=== PATIENT | male | born 1945 | race Caucasian/White ===

== ENCOUNTER 2020-12-05 01:10 | Inpatient (IN) | payer MEDICARE ==
[~2020-12-05] VITALS: Ht 177.8 cm; Wt 61.2 kg
[~2020-12-05 01:10] MED LIST: VITAMIN D21250 MCG PO
[2020-12-05] MEDS ORDERED: COZAAR 25MG TAB25 MG PO (03:48)
[2020-12-05] MEDS ORDERED: LIOTHYRONINE SO5 MCG PO (03:49)
--- NOTE | 2020-12-05 06:21 | NUR ---
UPON ADMISSION TO FLOOR, DR. STEVENS WAS NOTIFIED OF PT ARRIVAL FROM [place]. AFTER ASSESSING PT AND MD CAME TO ROOM TO ASSESS PT, I REQUESTED THAT PT BE MOVED TO A HIGHER LEVEL OF CARE. MD STATED THERE WAS NO NEED, THAT HE WOULD RECEIVE THE SAME CARE ON THIS FLOOR ICU. REQUEST DENIED. WCTM
[2020-12-05 06:26] LABS: RED BLOOD COUNT 3.89 M/UL (4.20-5.50); WHITE BLOOD COUNT 19.2 K/UL (4.5-11.0)
[2020-12-05 07:06] LABS: BUN/CREATININE RATIO 28 (0-10)
[2020-12-05 16:52] LABS: ADENOVIRUS F 40/41 Not Detected (Negative); ASTROVIRUS Not Detected (Negative); CAMPYLOBACTER Not Detected (Negative); CLOSTRIDIUM DIFFICILE TOX A/B Not Detected (Negative); CRYPTOSPORIDIUM Not Detected (Negative); E.COLI 0157 Not Detected (Negative); ENTAMOEBA HISTOLYTICA Not Detected (Negative); ENTEROAGGREGATIVE E.COLI (EAEC Not Detected (Negative); ENTEROPATHOGENIC E.COLI (EPEC) Not Detected (Negative); ENTEROTOXIGENIC E.COLI (ETEC) Not Detected (Negative); GIARDIA LAMBLIA Not Detected (Negative); NOROVIRUS GI/GII Not Detected (Negative); PLESIOMONAS SHIGELLOIDES Not Detected (Negative); ROTOVIRUS A Not Detected (Negative); SALMONELLA Not Detected (Negative); SAPOVIRUS Not Detected (Negative); SHIG/ENTEROINVAS.ECOLI (EIEC) Not Detected (Negative); SHIGA-LIK TOX.PRO.E.COLI (STEC Not Detected (Negative); VIBRIO Not Detected (Negative); VIBRIO CHOLERAE Not Detected (Negative); YERSINIA ENTEROCOLITICA Not Detected (Negative)
--- NOTE | 2020-12-05 18:07 | NUR ---
DR GARCIA NOTIFIED OF LAB RESULT LACTIC ACID OF 18, ALSO MADE HIM AWARE OF DAUGHTERS CONCERN FOR POSSIBLE FALSE POSITIVE COVID TEST, NEW ORDER REC'D
--- NOTE | 2020-12-05 18:25 | NUR ---
0800 JOSE NOTIFIED OF PT BP 75/30 PT ALERT AND ORIENTED X4 MD GAVE ORDERS FOR PT TO BE TTRANSFERED TO HIGHER LEVEL OF CARE RESOURCE RN CAME TO ADMINSITERED MEDICATIONS TO MAINTAIN PATIENT UNTIL BED WAS OPEN
[2020-12-06 02:54] LABS: WHITE BLOOD COUNT 23.4 K/UL (4.5-11.0)
[2020-12-06 03:00] LABS: HEMOGLOBIN 9.7 gm/dl (14.0-17.5); RED BLOOD COUNT 3.12 M/UL (4.20-5.50)
[2020-12-06 03:18] LABS: BUN/CREATININE RATIO 39 (0-10)
[2020-12-07 13:16] LABS: BUN/CREATININE RATIO 55 (0-10)
[2020-12-08 03:47] LABS: HEMOGLOBIN 9.1 gm/dl (14.0-17.5); RED BLOOD COUNT 2.99 M/UL (4.20-5.50)
[2020-12-08 03:52] LABS: WHITE BLOOD COUNT 30.1 K/UL (4.5-11.0)
[2020-12-08 04:04] LABS: BUN/CREATININE RATIO 55 (0-10)
[2020-12-08 15:23] LABS: ACINETOBACTER BAUMANNII Not Detected (Negative); CANDIDA ALBICANS Not Detected (Negative); CANDIDA KRUSEI Not Detected (Negative); CANDIDA TROPICALIS Not Detected (Negative); ENTEROCOCCUS Not Detected (Negative); ESCHERICHIA COLI Not Detected (Negative); HAEMOPHILUS INFLUENZAE Not Detected (Negative); KLEBSIELLA OXYTOCA Not Detected (Negative); KLEBSIELLA PNEUMONIAE Not Detected (Negative); KPC-CARBAPENEM-RESISTANCE GENE Not Detected (Negative); PROTEUS Not Detected (Negative); PSEUDOMONAS AERUGINOSA Not Detected (Negative); SERRATIA MARCESANS Not Detected (Negative); STAPHYLOCOCCUS AUREUS Not Detected (Negative); STREP AGALACTIAE (GROUP B) Not Detected (Negative); STREP PYOGENES (GROUP A) Not Detected (Negative); STREPTOCOCCUS Not Detected (Negative); vanA/B (VANCOMYCIN RESIST GENE Not Detected (Negative)
--- NOTE | 2020-12-08 16:00 | NUR ---
SUCTIONED PT WHEN NEEDED AT 1600.
[2020-12-08 16:40] LABS: STAPHYLOCOCCUS DETECTED (Negative); mecA (METHICILLIN RESIST GENE DETECTED (Negative)
--- NOTE | 2020-12-08 18:31 | NUR ---
ATTEMPTED TO GIVE PT SOME SOFT FOOD DOCTOR ORDERED. PT STARTED TO COUGH AFTER EACH BITE AND I WAS NOT COMFORTABLE PRECEEDING. SCTIONED WHAT WAS LEFT OUT OF PATIENTS MOUTH AND MADE SURE HE WAS NOT IN ANY DISTRESS.
[2020-12-09 03:39] LABS: HEMOGLOBIN 9.4 gm/dl (14.0-17.5); RED BLOOD COUNT 3.21 M/UL (4.20-5.50); WHITE BLOOD COUNT 17.9 K/UL (4.5-11.0)
[2020-12-09 03:58] LABS: BUN/CREATININE RATIO 53 (0-10)
--- NOTE | 2020-12-09 10:00 | NUR ---
PT FAMILY CALLED TO GET TELEPHONE CONSENT FOR PICC LINE TO MAINTAIN IV ACCESS.
--- NOTE | 2020-12-09 12:23 | NUR ---
AT 1000 WE CALLED THE TO GET CONSENT FOR A PICC LINE TO MAINTAIN IV ACCESS. BOTH IVS WERE RED BUT STILL FLUSHING AND WORKING PROPERLY. DUE TO THE PT SWELLING AROUND THE ARMS HIS IVS WERE BARELY HOLDING ON.I TOLD ABOUT THE IV ACCESS PROBLEM.HE TOLD ME TO CONSULT THE PICC NURSE TO GET A PICC LINE IN HIM. WHILE WE WERE TRYING TO GET IV ACCESS ON THIS PATIENT HE STARTED AGNONAL BREATING WHILE ATTEMPTING TO GET THE PICC LINE. I TURNED UP HIS OXYGEN FROM 2L TO 6L NC. ONCE I SEEN ON THE MONITOR THAT HIS STATS WERE NOT GETTING BETTER SO I TOLD DOCTOR JOSE THAT HIS STATS WERE GOING DOWN AND HE TOLD ME TO PUT HIM ON A NONREBREATHER TO HELP MUCH POSSIBLE. THE PT THEN STARTED TAKING ONE BREATH A MIN FOR 4 MINUTES. ONCE HE HAD TAKEN HIS LAST BREATH THEN LISTENED FOR A HEARTBEAT BOTH ME AND THE DOCTOR AND WE NEITHER HEARD A HEARTBEAT. THE PATIENT WAS THEN PRONOUNCED AT 1055. ONCE HE WAS PRONOUNCED I THEN HAD MY ROLL ICER DONNA CANALES TO CALL AND TELL HIS FAMILY THAT HE HAD . AFTER I TALKED TO THEM I CALLED RICHAR TO RULE OUT THAT HE WAS NOT A ORGAN DONOR. DUE TO COVID HE WAS NOT A ORGAN DONOR. THE PATIENT THEN GOT CLEANED UP. AND THE HOME WAS CALLED AT 1250.
--- NOTE | 2020-12-09 15:02 | NUR ---
Late entry. 1000) Attempted to place PICC line. Pt very edematous. Access obtained but could not advance wire. Procedure aborted without achieving venous access.
== END 2020-12-09 10:55 | disposition expired | DRG 871 ==
LOC: M/S 01:10 → PROG CARE 03:20
PROVIDERS: Internal Medicine; ADMIT Internal Medicine
PROC: XW033E5 Introduction of Remdesivir Anti-infective into Peripheral Vein, Percutaneous Approach, New Technology Group 5 (ICD-10-PCS; principal; 2020-12-05)
PROC: 8E0ZXY6 Isolation (ICD-10-PCS; 2020-12-05)
DX: A41.89 Other specified sepsis (principal); U07.1 COVID-19; J12.82 Pneumonia due to coronavirus disease 2019; R65.21 Severe sepsis with septic shock; G93.41 Metabolic encephalopathy; E43 Unspecified severe protein-calorie malnutrition; R53.2 Functional quadriplegia; Z68.1 Body mass index [BMI] 19.9 or less, adult; R64 Cachexia; I48.91 Unspecified atrial fibrillation; E03.9 Hypothyroidism, unspecified; I10 Essential (primary) hypertension; R62.7 Adult failure to thrive; I73.9 Peripheral vascular disease, unspecified; R19.7 Diarrhea, unspecified; E87.6 Hypokalemia; R13.10 Dysphagia, unspecified; Z79.899 Other long term (current) drug therapy; Z85.46 Personal history of malignant neoplasm of prostate; Z74.01 Bed confinement status
CPT/HCPCS: 36415; 36600; 71045; 80048; 80053; 82550; 82553; 82728; 82803; 82962; 83540; 83550; 83605; 83735; 84100; 84132; 84439; 84443; 84484; 85025; 85045; 86140; 87040; 87077; 87150; 87186; 87507; 92526; 92610; 93005; 93925; C9113; J0456; J0692; J0696; J1100; J1650; J3370; J3475; J3480; J7030; J7070; U0003